=== PATIENT | female | born 1990 | race American Indian/Alaskan Native ===

== ENCOUNTER 2021-07-27 09:48 | Emergency (ER) | payer SELFPAY ==
[2021-07-27] MEDS ORDERED: ONDANSETRON 4 MG ODT TAB PO ONE (10:27)
[2021-07-27] MEDS ORDERED: BUTALB/ACETAMINOPHEN/CAFFEINE TAB PO ONE (10:27)
[2021-07-27] MEDS ORDERED: dexAMETHasone 20 MG/5 ML VIAL IM ONE (10:27)
[2021-07-27] MEDS ORDERED: IPRATROPIUM 0.02% NEBU 2.5 ML IH ONE (10:27)
[2021-07-27] MEDS ORDERED: ALBUTEROL 2.5 MG/3 ML NEBU IH ONE (10:27)
--- NOTE | 2021-07-27 10:38 | Emergency Department Report ---
- General Chief Complaint: Dyspnea/Respdistress Stated Complaint: Throat pain/cough/CONLEY Time Seen by Provider: 07/27/21 10:09 Source: patient Mode of arrival: Ambulatory Limitations: No Limitations - History of Present Illness Initial Comments: Patient is a 31-year-old female presents emergency room with complaints of an exacerbation of her asthma. She states over the last 2 days she has had shortness of breath, wheezing, cough, headache, nausea, sore throat. Patient uses budesonide and albuterol inhalers and also uses nebulizer treatments at home. She denies any fever, vomiting, diarrhea, chest pain. Allergy to peanut and NSAIDs. She has been fully vaccinated for COVID-19. She states that she just moved to [place] from [place] on 07/16/2021. She states that she is currently on her menstrual cycle. - Related Data Previous Rx's Medication Instructions Recorded Last Taken Type ALBUTEROL NEB's [Proventil 0.083% 2.5 mg IH TID PRN #1 box 07/27/21 Unknown Rx NEBS] Albuterol Sulfate [Proventil Hfa] 1 puff IH TID PRN #1 hfa.aer.ad 07/27/21 Unknown Rx Benzonatate [Tessalon Perles] 100 mg PO Q8HR PRN #10 capsule 07/27/21 Unknown Rx Budesonide/Formoterol Fumarate 1 puff IH BID #1 hfa.aer.ad 07/27/21 Unknown Rx [Budesonide-Formoterol 80-4.5] guaiFENesin ER [Mucinex ER] 600 mg PO Q12H #14 tablet.er 07/27/21 Unknown Rx predniSONE [Deltasone] 40 mg PO QDAY 5 Days #10 tab 07/27/21 Unknown Rx Allergies Allergy/AdvReac Type Severity Reaction Status Date / Time peanut Allergy Anaphylaxis Verified 07/27/21 09:57 NSAIDS (Non-Steroidal AdvReac Vomiting Verified 07/27/21 09:57 Anti-Inflamma ED Review of Systems ROS: Stated complaint: Throat pain/cough/CONLEY Other details as noted in HPI Comment: All other systems reviewed and negative ED Past Medical Hx - Medications Home Medications: Home Medications Medication Instructions Recorded Confirmed Last Taken Type ALBUTEROL NEB's [Proventil 0.083% 2.5 mg IH TID PRN #1 box 07/27/21 Unknown Rx NEBS] Albuterol Sulfate [Proventil Hfa] 1 puff IH TID PRN #1 hfa.aer.ad 07/27/21 Unknown Rx Benzonatate [Tessalon Perles] 100 mg PO Q8HR PRN #10 capsule 07/27/21 Unknown Rx Budesonide/Formoterol Fumarate 1 puff IH BID #1 hfa.aer.ad 07/27/21 Unknown Rx [Budesonide-Formoterol 80-4.5] guaiFENesin ER [Mucinex ER] 600 mg PO Q12H #14 tablet.er 07/27/21 Unknown Rx predniSONE [Deltasone] 40 mg PO QDAY 5 Days #10 tab 07/27/21 Unknown Rx ED Physical Exam - General Limitations: No Limitations General appearance: alert, in no apparent distress - Head Head exam: Present: atraumatic, normocephalic - Eye Eye exam: Present: normal appearance - ENT ENT exam: Present: normal orophraynx, mucous membranes moist, TM's normal bilaterally, normal external ear exam - Respiratory Respiratory exam: Present: wheezes (mild expiratory wheezing bilaterally), prolonged expiratory. Absent: respiratory distress, rales, rhonchi, stridor, chest wall tenderness, accessory muscle use, decreased breath sounds - Cardiovascular Cardiovascular Exam: Present: regular rate, normal rhythm, normal heart sounds. Absent: systolic murmur, diastolic murmur, rubs, gallop - Neurological Exam Neurological exam: Present: alert, oriented X3 - Psychiatric Psychiatric exam: Present: normal affect, normal mood - Skin Skin exam: Present: warm, dry, intact ED Course Vital Signs 07/27/21 07/27/21 07/27/21 09:55 11:27 11:33 Temperature 98.4 F Pulse Rate 80 Pulse Rate [ 20 L Bilateral Throughout] Respiratory 16 Rate Respiratory 86 H Rate [Bilateral Throughout] Blood Pressure 124/79 Blood Pressure 117/84 [Right] O2 Sat by Pulse 100 Oximetry 07/27/21 11:45 Temperature Pulse Rate Pulse Rate [ Bilateral Throughout] Respiratory Rate Respiratory Rate [Bilateral Throughout] Blood Pressure 124/79 Blood Pressure [Right] O2 Sat by Pulse 100 Oximetry ED Medical Decision Making - Lab Data Vital Signs 07/27/21 07/27/21 07/27/21 09:55 11:27 11:33 Temperature 98.4 F Pulse Rate 80 Pulse Rate [ 20 L Bilateral Throughout] Respiratory 16 Rate Respiratory 86 H Rate [Bilateral Throughout] Blood Pressure 124/79 Blood Pressure 117/84 [Right] O2 Sat by Pulse 100 Oximetry 07/27/21 11:45 Temperature Pulse Rate Pulse Rate [ Bilateral Throughout] Respiratory Rate Respiratory Rate [Bilateral Throughout] Blood Pressure 124/79 Blood Pressure [Right] O2 Sat by Pulse 100 Oximetry - Radiology Data Radiology results: report reviewed Ordering Physician: GO BALBUENA Date of Service: 07/27/21 Procedure(s): XR chest routine 2V Accession Number(s): [id number] cc: GO BALBUENA Fluoro Time In Minutes: CHEST 2 VIEWS INDICATION: cough, wheezing. COMPARISON: None FINDINGS: Support devices: None. Heart: Within normal limits. Lungs/pleura: No acute air space or interstitial disease. No pneumothorax. Additional findings: None. IMPRESSION: No acute findings. Signer Name: Shorty Petersen Jr, MD Signed: 07/27/2021 11:00 AM Workstation Name: [id number] Transcribed By: TTR Dictated By: SHORTY PETERSEN JR, MD Electronically Authenticated By: SHORTY PETERSEN JR, MD Signed Date/Time: 07/27/21 1100 DD/ 1059 TD/TT: - Medical Decision Making Patient is a 31-year-old female presents emergency room with complaints of an exacerbation of her asthma. She states over the last 2 days she has had shortness of breath, wheezing, cough, headache, nausea, sore throat. Patient uses budesonide and albuterol inhalers and also uses nebulizer treatments at home. She denies any fever, vomiting, diarrhea, chest pain. Allergy to peanut and NSAIDs. She has been fully vaccinated for COVID-19. She states that she just moved to [place] from [place] on 07/16/2021. She states that she is currently on her menstrual cycle. Vitals are normal. On exam patient has expiratory wheezing bilaterally. Chest x-ray No acute findings. Patient given medications in the emergency department. On reexamination patient is feeling much better and wheezing has completely resolved. Patient given prescription for medication and given medication refills. Advised patient Please take medication as prescribed. Increase your fluid intake. Follow-up with your health system doctor. Return to emergency room for any new or worsening symptoms. Recommend outpatient COVID-19 testing and if positive will need to self quarantine for 10 days from the onset of symptoms. Critical care attestation.: If time is entered above; I have spent that time in minutes in the direct care of this critically ill patient, excluding procedure time. ED Disposition Clinical Impression: Asthma Qualifiers: Asthma severity: unspecified severity Asthma persistence: unspecified Asthma complication type: with acute exacerbation Qualified Code(s): J45.901 - Unspecified asthma with (acute) exacerbation URI (upper respiratory infection) Qualifiers: URI type: unspecified URI Qualified Code(s): J06.9 - Acute upper respiratory infection, unspecified Disposition: HOME / SELF CARE / HOMELESS Is pt being admited?: No Does the pt Need Aspirin: No Condition: Stable Instructions: Asthma, Adult, Viral Respiratory Infection, Asthma (ED) Additional Instructions: Please take medication as prescribed. Increase your fluid intake. Follow-up with your primary care doctor. Return to emergency room for any new or worsening symptoms. Recommend outpatient COVID-19 testing and if positive will need to self quarantine for 10 days from the onset of symptoms. Prescriptions: Budesonide/Formoterol Fumarate [Budesonide-Formoterol 80-4.5] 1 puff IH BID #1 hfa.aer.ad predniSONE [Deltasone] 40 mg PO QDAY 5 Days #10 tab guaiFENesin ER [Mucinex ER] 600 mg PO Q12H #14 tablet.er ALBUTEROL NEB's [Proventil 0.083% NEBS] 2.5 mg IH TID PRN #1 box PRN Reason: Wheezing Albuterol Sulfate [Proventil Hfa] 1 puff IH TID PRN #1 hfa.aer.ad PRN Reason: shortness of breath/wheezing Benzonatate [Tessalon Perles] 100 mg PO Q8HR PRN #10 capsule PRN Reason: cough Referrals: PRIMARY CAREMD [Primary Care Provider] - 3-5 Days TEMI MAC MD [Staff Physician] - 3-5 Days [facility] [Provider Group] - 3-5 Days Forms: Work/School Release Form(ED) Time of Disposition: 11:44 Print Language: MEXICAN
--- NOTE | 2021-07-27 11:04 | XRay Report ---
CHEST 2 VIEWS INDICATION: cough, wheezing. COMPARISON: None FINDINGS: Support devices: None. Heart: Within normal limits. Lungs/pleura: No acute air space or interstitial disease. No pneumothorax. Additional findings: None. IMPRESSION: No acute findings. Signer Name: Shorty Petersen Jr, MD Signed: 07/27/2021 11:00 AM Workstation Name: [id number]
[2021-07-27 11:39] VITALS: BP 124/79
== END 2021-07-27 12:04 | disposition home or self-care (01) ==
LOC: ED 09:48
DX: J45.909 Unspecified asthma, uncomplicated (principal); J06.9 Acute upper respiratory infection, unspecified
CPT/HCPCS: 71046; 94644; 96372; 99283; J1100; J3490; Q0162

== ENCOUNTER 2021-08-14 17:15 | Emergency (ER) | payer SELFPAY ==
[2021-08-14] MEDS ORDERED: CYCLOBENZAPRINE 10 MG TAB PO ONE (17:34)
[2021-08-14] MEDS ORDERED: traMADol 50 MG TAB PO ONE (17:34)
[2021-08-14] MEDS ORDERED: METAXALONE 800 MG TAB PO ONE (17:37)
[2021-08-14 17:38] VITALS: BP 121/78
--- NOTE | 2021-08-14 17:59 | Emergency Department Report ---
ED Back Pain/Injury HPI - General Chief Complaint: Back Pain/Injury Stated Complaint: BACK PAIN/LEG PAIN Time Seen by Provider: 08/14/21 17:27 Source: patient Mode of arrival: Ambulatory Limitations: No Limitations - History of Present Illness Initial Comments: 31-year-old presents to the hospital planing of left-sided lower back pain, left thigh tightness, and left calf tightness for the last 4 days. Symptoms started when stepping out of bed 4 days ago. Pain feels like a knot and tightness worse with movement, ambulation, and palpitation. Patient denies bowel or bladder incontinence, fever, paresthesias, weakness, or numbness. Patient took 2 Tylenol and prednisone today without improvement. She cannot take NSAIDs secondary to recurrent bleeding polyps in her colon diagnosed on colonoscopy. Patient does not express concerns for since she is a lesbian. She denies nausea, vomiting, hematuria, or dysuria. - Related Data Previous Rx's Medication Instructions Recorded Last Taken Type ALBUTEROL NEB's [Proventil 0.083% 2.5 mg IH TID PRN #1 box 07/27/21 Unknown Rx NEBS] Albuterol Sulfate [Proventil Hfa] 1 puff IH TID PRN #1 hfa.aer.ad 07/27/21 Unknown Rx Benzonatate [Tessalon Perles] 100 mg PO Q8HR PRN #10 capsule 07/27/21 Unknown Rx Budesonide/Formoterol Fumarate 1 puff IH BID #1 hfa.aer.ad 07/27/21 Unknown Rx [Budesonide-Formoterol 80-4.5] guaiFENesin ER [Mucinex ER] 600 mg PO Q12H #14 tablet.er 07/27/21 Unknown Rx predniSONE [Deltasone] 40 mg PO QDAY 5 Days #10 tab 07/27/21 Unknown Rx traMADoL [Ultram 50 MG tab] 50 mg PO Q6HR PRN #20 tablet 08/14/21 Unknown Rx Allergies Allergy/AdvReac Type Severity Reaction Status Date / Time peanut Allergy Anaphylaxis Verified 08/14/21 17:33 NSAIDS (Non-Steroidal AdvReac Vomiting Verified 08/14/21 17:33 Anti-Inflamma ED Review of Systems ROS: Stated complaint: BACK PAIN/LEG PAIN Other details as noted in HPI Comment: All other systems reviewed and negative ED Past Medical Hx - Social History Smoking Status: Never Smoker Substance Use Type: None - Medications Home Medications: Home Medications Medication Instructions Recorded Confirmed Last Taken Type ALBUTEROL NEB's [Proventil 0.083% 2.5 mg IH TID PRN #1 box 07/27/21 08/14/21 Unknown Rx NEBS] Albuterol Sulfate [Proventil Hfa] 1 puff IH TID PRN #1 hfa.aer.ad 07/27/21 08/14/21 Unknown Rx Benzonatate [Tessalon Perles] 100 mg PO Q8HR PRN #10 capsule 07/27/21 08/14/21 Unknown Rx Budesonide/Formoterol Fumarate 1 puff IH BID #1 hfa.aer.ad 07/27/21 08/14/21 Unknown Rx [Budesonide-Formoterol 80-4.5] guaiFENesin ER [Mucinex ER] 600 mg PO Q12H #14 tablet.er 07/27/21 08/14/21 Unknown Rx predniSONE [Deltasone] 40 mg PO QDAY 5 Days #10 tab 07/27/21 08/14/21 Unknown Rx traMADoL [Ultram 50 MG tab] 50 mg PO Q6HR PRN #20 tablet 08/14/21 Unknown Rx ED Physical Exam - General Limitations: No Limitations - Other Other exam information: General: No acute distress Head: Atraumatic Eyes: normal appearance ENT: Moist mucous membranes Neck: Normal appearance, no midline tenderness Chest: Clear to auscultation bilaterally CV: Regular rate and rhythm Abdomen: Soft, normal bowel sounds, nontender, nondistended, no rebound or guarding Back: Normal inspection, no midline tenderness. Left-sided muscle tenderness worse with palpation and movement. Left calf and left thigh tenderness and tension Extremity: Normal inspection, full range of motion Neuro: Alert O x 3, no facial asymmetry, speech clear, no gross motor sensory deficit Psych: Appropriate behavior Skin: No rash ED Course Vital Signs 08/14/21 08/14/21 17:20 17:30 Temperature 98.4 F 98.1 F Pulse Rate 84 88 Respiratory 20 18 Rate Blood Pressure 103/72 121/78 Blood Pressure 121/76 [Right] O2 Sat by Pulse 100 99 Oximetry ED Medical Decision Making - Medical Decision Making 31-year female presents to the hospital with symptoms suggestive of left-sided muscle strain with concurrent muscle spasm and strain to the left lower extremity. Symptoms reproducible worse with palpation. Given her presentation and physical exam there is a low suspicion for DVT, kidney stones, infection, and . Patient with treated with tramadol and Skelaxin in the ED and wi ll be discharged with the same. Outpatient PMD follow-up advised Critical Care Time: No Critical care attestation.: If time is entered above; I have spent that time in minutes in the direct care of this critically ill patient, excluding procedure time. ED Disposition Clinical Impression: Low back strain, Muscle spasm of left lower extremity Disposition: HOME / SELF CARE / HOMELESS Is pt being admited?: No Does the pt Need Aspirin: No Condition: Stable Instructions: Muscle Cramps and Spasms, [id number], Lumbar Sprain Additional Instructions: Take the medication as prescribed. Follow-up with your doctor or doctor/clinic provided. Return if symptoms worsen as indicated by your discharge instructions. Prescriptions: traMADoL [Ultram 50 MG tab] 50 mg PO Q6HR PRN #20 tablet PRN Reason: Pain Referrals: PRIMARY CARE, [Primary Care Provider] - 3-5 Days [facility] [Provider Group] - 3-5 Days Forms: Work/School Release Form(ED) Time of Disposition: 17:59
== END 2021-08-14 18:17 | disposition home or self-care (01) ==
LOC: ED 17:15
DX: S39.012A Strain of muscle, fascia and tendon of lower back, initial encounter (principal); M62.838 Other muscle spasm; M79.652 Pain in left thigh; Z91.010 Allergy to peanuts; Z91.09 Other allergy status, other than to drugs and biological substances; Z79.899 Other long term (current) drug therapy; X58.XXXA Exposure to other specified factors, initial encounter; Y93.89 Activity, other specified; Y92.89 Other specified places as the place of occurrence of the external cause; Y99.8 Other external cause status
CPT/HCPCS: 99282